=== PATIENT | male | born 1985 | race Two or more races ===

== ENCOUNTER 2020-06-04 19:53 | Emergency (ER) | payer SELFPAY ==
[~2020-06-04] VITALS: Ht 165.1 cm; Wt 90.9 kg
[2020-06-04 19:59] VITALS: Ht 165.1 cm; Wt 90.9 kg
[2020-06-04] MEDS ORDERED: CEPHALEXIN500 M1 PO (21:48)
[2020-06-04 22:15] VITALS: BP 129/76
== END 2020-06-04 22:15 | disposition home or self-care (01) ==
LOC: D.ER 19:53
DX: S61.214A Laceration without foreign body of right ring finger without damage to nail, initial encounter (principal); W22.8XXA Striking against or struck by other objects, initial encounter; Y93.9 Activity, unspecified; Y92.9 Unspecified place or not applicable; S62.634A Displaced fracture of distal phalanx of right ring finger, initial encounter for closed fracture